=== PATIENT | female | born 1970 | race Caucasian/White ===

== ENCOUNTER 2017-04-13 15:06 | Emergency (ER) | payer SELFPAY ==
[~2017-04-13] VITALS: Ht 157.5 cm; Wt 91.0 kg
[2017-04-13 15:44] VITALS: BP 138/81
== END 2017-04-13 21:30 | disposition left against medical advice (07) ==
LOC: ER 16:05
DX: R11.2 Nausea with vomiting, unspecified (principal); Z53.21 Procedure and treatment not carried out due to patient leaving prior to being seen by health care provider

== ENCOUNTER 2017-05-14 17:03 | Emergency (ER) | payer SELFPAY ==
[~2017-05-14] VITALS: Ht 154.9 cm; Wt 101.0 kg
[2017-05-14 19:56] VITALS: BP 117/75
== END 2017-05-14 19:56 | disposition home or self-care (01) ==
LOC: ER 17:03
DX: L02.416 Cutaneous abscess of left lower limb (principal)
CPT/HCPCS: 99283